=== PATIENT | female | born 1960 | race Hispanic/Latino ===

== ENCOUNTER 2018-11-20 06:23 | Day surgery (SDC) | payer MEDICAID ==
[2018-11-10 09:12] VITALS: BMI 54.8
--- NOTE | 2018-11-17 22:04 | HP ---
DATE OF EXAM: 11/17/2018 REASON FOR ADMISSION: Left heart cath possible angioplasty. BRIEF CLINICAL HISTORY: This is a 58-year-old morbidly obese female with left foot nonhealing ulcer status post duplex twice was negative. The patient's recent stress and echo was abnormal, so the patient is scheduled for elective cardiac cath possible angioplasty. The patient complaining of dyspnea on exertion, chest pain on exertion. PAST MEDICAL HISTORY: Significant for morbidly obese and history of left foot nonhealing ulcer. CURRENT MEDICATIONS: The patient is on zinc sulfate, levothyroxine 25 mcg daily, cyanocobalamin, and ampicillin. ALLERGIES: SULFA DRUGS. RECENT CARDIAC WORKUP FOLLOWS: The patient had a stress test that shows partially reversible lateral defect suspicion of ischemia, ejection fraction 63%. REVIEW OF SYSTEMS: As per HPI. PHYSICAL EXAMINATION: VITAL SIGNS: Height of the patient 5 feet 2 inches, weight of the patient 300 pounds, body mass index 55 kg/m2. Rest of the vitals; temperature afebrile, heart rate 60, and blood pressure 110/80. HEENT: PERRLA. Extraocular muscles intact. NECK: Supple. No carotid bruit. No thyromegaly. CHEST: Clear to auscultation. HEART: S1 and S2 regular. ABDOMEN: Soft. EXTREMITIES: Clubbing and cyanosis, negative. Pedal edema 1 to 2 + noted. Nonhealing ulcer noted. Left foot is in dressing. IMPRESSION: This is a 58-year-old morbidly obese female with past medical history significant for hypothyroidism, nonhealing ulcer, and dyspnea on exertion, chest pain on exertion, underwent stress test noninvasive that shows reversible ischemia, lateral ischemia, so the patient scheduled elective cardiac cath possible angioplasty. Risks, benefits, alternatives discussed with the patient. The patient agreed, we will proceed for cardiac catheterization. Await for blood workup when the blood work is available, we will load with aspirin and Plavix and then we will proceed for cardiac catheterization. Further recommendation after cardiac catheterization. Thank you for providing us the opportunity in taking care of the patient, Yesenia Krishnan. Florencia Jones MD [facility] # [id number]
[2018-11-20] MEDS ORDERED: Lidocaine 2% Inj (20ml) ONE (07:03)
[2018-11-20] MEDS ORDERED: Phenylephrine 10 mg/ml Inj ONE (07:03)
[2018-11-20] MEDS ORDERED: Iohexol 350mgl/ml 50 ML ONE (07:04)
[2018-11-20] MEDS ORDERED: Nitroglycerin 50mg in D5W 50 MG/250 ML BOTTLE IV ONE (07:04)
[2018-11-20] MEDS ORDERED: Iohexol 350 MG/100 ML VIAL ONE (07:04)
[2018-11-20 07:26] LABS: BASO # 0.05 K/mm3 (0.0-2.0); BASO % 0.7 % (0.0-3.0); EOS # 0.2 (0.0-0.7); EOS % 3.3 % (1.5-5.0); HEMOGLOBIN 14.1 g/dL (12.0-16.0); LYMPH # 1.7 (1.2-3.4); LYMPH % 24.6 % (22.0-35.0); MEAN CELL VOLUME 87.2 fl (80.0-105.0); MEAN CORPUSCULAR HEMOGLOBIN 26.6 pg (25.0-35.0); MEAN CORPUSCULAR HGB CONC 30.5 g/dl (31.0-37.0); MEAN PLATELET VOLUME 10.3 fl (7.0-11.0); MONO # 0.9 (0.1-0.6); MONO % 12.9 % (1.0-6.0); RBC 5.3 10^6/uL (3.5-6.1); RED CELL DISTRIBUTION WIDTH 13.7 % (11.5-14.5); WHITE BLOOD COUNT 6.7 10^3/uL (4.5-11.0)
[2018-11-20] MEDS ORDERED: Verapamil 2 ML ONE (07:29)
[2018-11-20 07:31] LABS: INR 0.96; PARTIAL THROMBOPLASTIN TIME 34.5 Seconds (26.9-38.3); PROTHROMBIN TIME 10.8 SECONDS (9.4-12.5)
[2018-11-20 07:34] LABS: BLOOD UREA NITROGEN 22 mg/dL (7-21); CALCIUM 9.4 mg/dL (8.4-10.5); GFR NON-AFRICAN AMERICAN 57; HDL CHOLESTEROL 71 mg/dL (29-60)
[2018-11-20 07:40] VITALS: RESP 18
[2018-11-20 07:45] LABS: LDL CHOLESTEROL 117 mg/dL (0-129)
[2018-11-20] MEDS ORDERED: Midazolam 2 MG/2 ML VIAL ONE (07:49)
[2018-11-20] MEDS ORDERED: Bacitracin 500 Units/gm Oint Foilpak UD TOP ONE (08:26)
[2018-11-20] MEDS ORDERED: Sodium Chloride 0.9% 1,000 ML IV SCH (08:30)
[2018-11-20 08:50] VITALS: TEMP 97.5
--- NOTE | 2018-11-20 09:12 | CPOSTOP ---
DATE: 11/20/2018 CARDIOVASCULAR LAB POSTPROCEDURE NOTE PHYSICIAN: Florencia Jones MD HEATING REPAIR TECHNICIAN: JESUS Gamez. TYPE OF ANESTHESIA: Moderate conscious sedation, total 1 mg of Versed and 50 of Fentanyl given. PRE-PROCEDURE DIAGNOSIS: Unstable angina, abnormal stress test. PROCEDURE PERFORMED: Left heart catheterization. FINDINGS: Normal coronaries and preserved LV function. FINAL DIAGNOSIS: Normal coronaries. POST PROCEDURE CONDITION: The patient's condition is stable. VASCULAR ACCESS SITE: Left radial. CLOSURE DEVICE: TR-band. RADIATION DOSE: 4817.8 milligray unit. TOTAL FLUORO TIME: 1.5 minutes. Florencia Jones MD
[2018-11-20] MEDS ORDERED: Bacitracin 500 Units/gm Oint Foilpak UD ONE (11:04)
--- NOTE | 2018-11-20 11:24 | CARD ---
APPROVED REPORT Date of service: 11/20/2018 EKG Measurement Heart [id number] <Conclusion> Normal sinus rhythm Non Specific ST-T Changes.
[2018-11-20 12:14] VITALS: BP 112/64; PULSE 82; O2SAT 98
[2018-11-20] MEDS ORDERED: Potassium Chloride 20 mEq ER Tab PO ONE ×2 (12:36→13:00)
--- NOTE | 2018-11-20 17:02 | CARD ---
APPROVED REPORT Date of service: 11/20/2018 Procedure(s) performed: Left Heart Catheterization HISTORY The patient is a 58 year-old female with a history of : most recent EF: 63%. (EF Method: RADIONUCLIDE), peripheral vascular disease, was C/o Chest pain and SCHMID and abnormal strerss test. INDICATION The indication(s) include : positive stress test, chest pain, dyspnea. CASE TECHNIQUE The patient was brought electively to the Cardiac Catheterization Laboratory in a fasting state and was prepped and draped in a sterile manner. The left wrist was infiltrated with 2% Lidocaine subcutaneous anesthesia. A 6FR GLIDESStromedixTH ACCESS KIT sheath was inserted into the left radial artery without difficulty. Coronary angiography was performed using coronary diagnostic catheters. The left coronary system was accessed and visualized with a Diagnostic ,5F JL 4 CATH DXT 100 CM catheter. The right coronary system was accessed and visualized with a Diagnostic, 5F JL 4 CATH DXT 100 CM catheter. The left ventricle was accessed and visualized with a 5F PIGTAIL 145 CATH DXT 110 CM catheter. Left ventricular/Aortic Valve gradient assessed on pullback. Left ventriculogram was performed in TAM projection. Closure device was deployed with a Fr TR Band (Large) without any complications. The patient tolerated the procedure well and there were no complications associated with the procedure. Vessel Analysis The patient's coronary anatomy is left dominant. The left main coronary artery is a large size vessel . The left main trifurcates to the left anterior descending, circumflex, and ramus. The left anterior descending artery is a large size vessel without significant stenosis. The first diagonal branch is a medium size vessel without significant stenosis. The circumflex artery is a large size vessel without significant stenosis. The first obtuse marginal branch is a small size vessel with diffuse calcification noted throughout this vessel and without significant stenosis. The second obtuse marginal branch is a medium size vessel without significant stenosis. The left posterior descending artery is a large size vessel with diffuse calcification noted throughout this vessel and without significant stenosis. The ramus intermedius artery is a medium size vessel with diffuse calcification noted throughout this vessel and without significant stenosis. Which divides into two branches upper and lower divisions, both are diffusely diseased in the very distal segment 55%, but non focal stenosis.normal There is a 55% stenosis in the very distal segment , diffusely diseased, but no focal flow limiting stenosis.. The right coronary artery is a small size vessel without significant stenosis. Left Ventricle The left ventricle is normal in size with normal contractility. There was no cardiomyopathy. The left ventricular ejection fraction is estimated to be 65%. The left ventricular end diastolic pressure is 20 mmHg. There was no gradient across the aortic valve upon pullback. 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 Preserved Lv Fx. EF-65%, EDP_20 mmof Hg. Recommendations Aggressive Medical TherapyCardiac Risk Reduction Program Weight Loss Reduction Program Modification of life style. CC; DR Lola Benítez MD
== END 2018-11-20 14:05 | disposition home or self-care (01) ==
LOC: CATH 06:23
PROVIDERS: ATTEND Internal Medicine Cardiovascular Disease
DX: I25.110 Atherosclerotic heart disease of native coronary artery with unstable angina pectoris (principal); I73.9 Peripheral vascular disease, unspecified; R94.39 Abnormal result of other cardiovascular function study; E66.01 Morbid (severe) obesity due to excess calories; Z68.43 Body mass index [BMI] 50.0-59.9, adult; L97.529 Non-pressure chronic ulcer of other part of left foot with unspecified severity; R06.09 Other forms of dyspnea; E03.9 Hypothyroidism, unspecified
CPT/HCPCS: 36415; 80048; 80061; 85025; 85610; 85730; 86850; 86900; 93005; 93458; 99152; 99153; C1769; J1644 ×2; J1940; J2250; J3010; J7030; Q9967